=== PATIENT | female | born 1980 | race Caucasian/White ===

== ENCOUNTER → 2021-09-05 | Outpatient (REF) ==
[~2021-09-05] MED LIST: ALBU83IN INH; ATRO0.06; CLAR10CA3 PO; CLIN1AER EX; CLIN1GEL5 EX; COLA100C5 PO; DEPO150I IM; FLON1SPR; MIRA33504 PO; MOBI4TAB PO; NEUR600T PO; OMEP40CA4 PO; OXYC-1 PO; PROAAER10 IN; SELE1SH TOP; SENN8.6C PO; SING10TA32 PO; SPIR1CAP INH; SYMB16INH INH; TRAZ1TAB14 PO; TRET0.02 EX; VITA20008 PO; XANA2TAB2 PO
== END ==
LOC: M PLAIMG 13:46
PROVIDERS: ATTEND Internal Medicine
DX: Z00.00 Encounter for general adult medical examination without abnormal findings (principal)